=== PATIENT | male | born 1960 | race Caucasian/White ===

== ENCOUNTER 2019-11-03 12:51 | Outpatient (CLI) | payer BC, SELFPAY ==
--- NOTE | ~2019-11-03 | XR_ITS ---
EXAMINATION: XR lg joint inject/asp w image DATE: 11/03/2019 13:55 INDICATION: Left shoulder osteoarthritis. TECHNIQUE: A time-out was performed to verify the patient's name, date of , and procedure to b e performed. The procedure including the risks, benefits, and alternatives was discussed with the pat ient. Risks discussed included bleeding and infection. The patient understood the risks and agreed to proceed. The skin overlying the left shoulder joint was prepped and draped in usual sterile fashion . Anesthetic was administered with 1% lidocaine subcutaneously. A 22 G needle was advanced under fl uoroscopic guidance into the joint. Injection of 1 mL of Omnipaque 240 confirmed intra-articular pos ition of the needle. Subsequently, injectate consisting of 4 mL 1% lidocaine and 1 mL 80 mg/mL Depo- Medrol was instilled. The needle was removed and the entry site was cleaned and dressed. There were no immediate complications. Fluoroscopy exposure time was 0.1 minutes. The total number of images wa s 2. FINDINGS: Real-time fluoroscopy demonstrates the needle in the left glenohumeral joint. IMPRESSION: 1. Left glenohumeral joint injection of local anesthetic and steroid. Reviewed, dictated and finalized at location A.
== END 2019-11-03 12:52 | disposition home or self-care (01) ==
PROVIDERS: Visit Provider Orthopaedic Surgery
DX: M19.012 Primary osteoarthritis, left shoulder (principal)
CPT/HCPCS: 20610; 77002; J1040; Q9966

== ENCOUNTER 2020-04-03 12:53 | Outpatient (CLI) | payer BC, SELFPAY ==
--- NOTE | ~2020-04-03 | XR_ITS ---
EXAMINATION: XR lg joint inject/asp w image DATE: 04/03/2020 14:28 INDICATION: Left shoulder osteoarthritis and pain TECHNIQUE: A time-out was performed to verify the patient's name, date of , and procedure to b e performed. The procedure including the risks and benefits was discussed with the patient. Risks dis cussed included bleeding and infection. The patient understood the risks and agreed to proceed. The skin overlying the left shoulder joint was prepared and draped in usual sterile fashion. The skin and subcutaneous tissues were infiltrated with 1% lidocaine for local anesthesia. A 22 G needle was adva nced under fluoroscopic guidance into the joint. Injection of 1 mL of Omnipaque 240 confirmed intra-a rticular position of the needle. Subsequently, injectate consisting of 4 mm of 1% lidocaine and 1 mL 80 mg/mL of Depo-Medrol was instilled. The needle was removed and the entry site was cleaned and joanna ssed. There were no immediate complications. Fluoroscopy exposure time was 0.1 minutes. The DAP for t his procedure was 0.194 Gycm2. FINDINGS: Real-time fluoroscopy demonstrates the needle in the left glenohumeral joint. Patient's kristin n prior to procedure: 8/10. Patient's pain following the procedure: 5/10. IMPRESSION: 1. Successful left glenohumeral joint injection of local anesthetic and steroid with decrease in the patient's presenting pain. Reviewed, dictated and finalized at location A. [facility]
== END 2020-04-03 12:54 | disposition home or self-care (01) ==
PROVIDERS: PCP Orthopaedic Surgery; Visit Provider Orthopaedic Surgery
DX: M19.012 Primary osteoarthritis, left shoulder (principal)
CPT/HCPCS: 20610; 77002; J1040; Q9966